=== PATIENT | female | born 2005 | race Hispanic/Latino ===

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

== ENCOUNTER 2025-02-28 20:05 | Emergency (ER) | payer MEDICAID, OTHER ==
[~2025-02-28] VITALS: Ht 165.1 cm; Wt 53.1 kg
[~2025-02-28 20:05] MED LIST changes: +CEFP200T14 PO; -CYCL5TAB PO; +CYCL5TAB3 PO
--- NOTE | 2025-02-28 20:07 | NUR ---
REPORT TO AILYN RAMÍREZ PT MOTHER NATALYA LOPEZ WILL BE BY FOR PT CHILD. DR[facility] FROM [facility]
[2025-02-28 20:26] LABS: IMMATURE GRANULOCYTE ABSOLUTE 0.04 K/uL (0-1); NUCLEATED RED BLOOD CELLS 0.0 % (0.0-0.19); PLATELET COUNT (AUTO) 204 K/uL (130-400); RED BLOOD CELL COUNT(AUTO) 5.14 MIL/uL (4.00-5.50); RED CELL DISTRIBUTION WIDTH 12.8 % (11.0-15.5); WHITE BLOOD COUNT (AUTO) 12.3 K/uL (4.8-10.8)
[2025-02-28 20:39] LABS: CREATININE 0.7 mg/dL (0.5-1.0); GLOMERULAR FILTR. RATE CALC 127.0 mL/min (>90); GLUCOSE,RANDOM 101.0 mg/dL (70-105); SODIUM SERUM 140.0 mmol/L (136-145); UREA NITROGEN, BLOOD 8.0 mg/dL (7-18)
--- NOTE | 2025-02-28 20:39 | ERN ---
ED Note History of Present Illness Stated Complaint: CHEST PAIN Chief Complaint: Chest Pain Time Seen by MD: 20:30 Dictation: This is a 19-year-old female who presented to the emergency room with complaints of midsternal chest pressure with radiation to the back. Apparently this sta rted around 2:00 p.m. today. She states that this pain increases with a inspiration. No fever chills or rigors no cough sputum or hemoptysis. She also reported nausea associated with it. No hematemesis or melena no vomitings or diarrhea. There is no relation of pain to leaning forwards Temperature 98.7 pulse 99 respirations 20 blood pressure 123/86 with a pulse oximetry of 98% on room air Allergies: Coded Allergies: No Known Allergies (Unverified Allergy, Unknown, 08/07/20) Home Meds Active Scripts Albuterol Sulfate (Ventolin Hfa/Proventil Hfa/Proair Hfa) 90 Mcg Puff, 1-2 PUFF IH Q4H PRN for SHORTNESS OF BREATH for 5 Days, #1 INH 0 Refills PHARMACY TO DISPENSE 1 INHALER FOR USE Prov:ROXIE TOVAR MD 02/28/25 Prednisone (Prednisone) 20 Mg Tablet, 1 TAB PO AD for 6 Days, #14 TAB 0 Refills TAKE 1 TAB BY MOUTH THREE TIMES PER DAY X3 DAYS, THEN TAKE 1 TAB BY MOUTH TWICE A DAY X2 DAYS, THEN TAKE 1 TAB BY MOUTH ONCE A DAY X1 DAY. Prov:ROXIE TOVAR MD 02/28/25 Cefpodoxime Proxetil (Cefpodoxime Proxetil) 200 Mg Tablet, 200 MG PO BID for 10 Days, #20 TAB Prov:JULIEN PHELAN DO 10/31/23 Cephalexin Monohydrate (Keflex) 500 Mg Cap, 500 MG PO TID for 7 Days, #21 CAP Prov:MALGORZATA TONG 04/23/22 Ibuprofen (Advil) 200 Mg Tablet, 400 MG PO Q6HPRN PRN for PAIN, #30 TAB Prov:SUELLEN CORNELIUS 03/27/22 Famotidine (Pepcid) 20 Mg Tablet, 20 MG PO DAILY for 14 Days, #14 TAB 0 Refills Prov:MICKI BARR MD 03/28/21 Lidocaine (Lidoderm Patch 5%) 1 Patch Patch, 1 PATCH TP DAILY PRN for PAIN LEVEL 1 TO 5, #30 ADH.PATCH 0 Refills Prov:NEELIMA BREWER MD 02/16/21 Cyclobenzaprine HCl (Cyclobenzaprine HCl) 5 Mg Tablet, 5 MG PO TID, #20 TAB 0 Refills Prov:NEELIMA BREWER MD 02/16/21 Past Medical History Past Medical History: No Pertinent History Surgical History: None Family History: Negative Social History: Lives with family LMP: Feb 10, 2025 : 2 Para: 1 Aborts: 1 RN Note Reviewed/Agreed w/PFSH: Yes Review of System Dictation Constitutional: Negative for fever,chills, and weight loss Eyes: Negative for injury, pain,redness, and discharge ENT: Negative for injury,pain or swelling Cardiovascular: Positive for mid central chest pain, denies palpitations, and edema Respiratory: Negative for shortness of breath, cough, and wheezing, Abdomen/GI: Negative for abdominal pain, nausea, vomiting, diarrhea, and const ipation Back: Negative for injury and pain : Negative for injury, bleeding and discharge MS/Extremity: Negative for injury and deformity Skin: Negative for rash, and discoloration Neuro: Negative for headache, weakness, numbness, tingling, and seizure Psych: Negative for suicide ideation, homicidal ideation, and hallucinations Initial Vital Sign VS Vital Signs Date Time Temp Pulse Resp B/P (MAP) Pulse Ox O2 Delivery O2 Flow Rate FiO2 02/28/25 20:07 98.8 99 20 123/86 98 Room Air 02/28/25 20:30 0 21 Physical Exam Dictation General: awake, alert, NAD Head/Face: Normocephalic, atraumatic Eyes: PERRL, EOMI, vision at baseline ENT: oral cavity clear, TMs clear, no signs of infection Neck: Trachea midline, supple, no nuchal rigidity Cardiovascular: RRR, normal S1/S2, No MRGs, no JVD Respiratory: CTAB, no respiratory distress, No rales or wheezes Abdomen: Soft, non-tender, non-distended, normal bowel sounds, no guarding or rebound. Skin: Warm, dry, normal turgor, no rash MS/Extremity: Pulses equal, no cyanosis, neurovascular intact, FROM Neuro: COAx4, GCS 15, strength 5/5, CN 2-12 intact, normal cerebellar exam, normal gait, Psych: Normal behavior, mood, and affect normal Extremities-trace edema without any palpable cords, Homans sign is negative Results (Laboratory/Radiology) Laboratory/Radiology Laboratory Tests Test 02/28/25 20:17 02/28/25 21:08 White Blood Count 12.3 K/uL (4.8-10.8) H Red Blood Count 5.14 MIL/uL (4.00-5.50) Hemoglobin 13.9 g/dL (12.0-16.0) Hematocrit 41.3 % (36-48) Mean Corpuscular Volume 80.4 fL (80-100) Mean Corpuscular Hemoglobin 27.0 pg (27.0-33.0) Mean Corpuscular Hemoglobin Concent 33.7 g/dL (32.0-36.0) Red Cell Distribution Width 12.8 % (11.0-15.5) Platelet Count 204 K/uL (130-400) Mean Platelet Volume 10.8 fL (7.5-10.5) H Immature Granulocyte % (Auto) 0.3 % (0-1) Neutrophils (%) (Auto) 69.5 % (40.0-77.0) Lymphocytes (%) (Auto) 21.9 % (21.0-51.0) Monocytes (%) (Auto) 4.7 % (3.0-13.0) Eosinophils (%) (Auto) 3.1 % (0.0-8.0) Basophils (%) (Auto) 0.5 % (0.0-5.0) Neutrophils # (Auto) 8.5 K/uL (1.8-7.7) H Lymphocytes # (Auto) 2.7 K/uL (1.0-4.8) Monocytes # (Auto) 0.6 K/uL (0.1-1.0) Eosinophils # (Auto) 0.38 K/uL (0.00-0.70) Basophils # (Auto) 0.06 K/uL (0.00-0.20) Absolute Immature Granulocyte (auto 0.04 K/uL (0-1) Nucleated Red Blood Cells 0.0 % (0.0-0.19) Sodium Level 140 mmol/L (136-145) Potassium Level 3.8 mmol/L (3.5-5.1) Chloride Level 103 mmol/L (101-111) Carbon Dioxide Level 29 mmol/L (21-32) Blood Urea Nitrogen 8 mg/dL (7-18) Creatinine 0.7 mg/dL (0.5-1.0) Glomerular Filtration Rate Calc 127 mL/min (>90) Random Glucose 101 mg/dL (70-105) Total Calcium 9.0 mg/dL (8.5-10.1) Total Creatine Kinase 89 U/L (21-232) Troponin I High Sensitivity < 4 ng/L (4-50) L Urine Color COLORLESS (YELLOW) Urine Appearance CLEAR (CLEAR) Urine pH 6.0 (5.0-8.0) Urine Specific [place] 1.004 (1.001-1.031) Urine Protein NEGATIVE mg/dL (NEGATIVE) Urine Glucose (UA) NEGATIVE mg/dL (NEGATIVE) Urine Ketones NEGATIVE mg/dL (NEGATIVE) Urine Occult Blood NEGATIVE (NEGATIVE) Urine Nitrate NEGATIVE (NEGATIVE) Urine Bilirubin NEGATIVE mg/dL (NEGATIVE) Urine Urobilinogen 0.2 mg/dL (0.2-1.0) Urine Leukocyte Esterase NEGATIVE [place]/uL Urine HCG, Qualitative NEGATIVE (NEGATIVE) Urine Opiates Screen NEGATIVE (NEGATIVE) Urine Barbiturates Screen NEGATIVE (NEGATIVE) Urine Phencyclidine Screen NEGATIVE (NEGATIVE) Urine Amphetamines Screen NEGATIVE (NEGATIVE) Urine Benzodiazepines Screen NEGATIVE (NEGATIVE) Urine Cocaine Screen NEGATIVE (NEGATIVE) Urine Marijuana (THC) Screen NEGATIVE (NEGATIVE) Labs Reviewed?: Yes EKG Comment: Twelve lead EKG done on 02/28/2025 at 8:20 p.m. showed a heart rate of 95 AR interval 158 QRS duration 81, QT/QTC 328/413 Impression normal sinus rhythm with nonspecific ST-T changes no acute ST-T elevations. EKG rhythm strip shows a normal sinus rhythm with no acute STT wave changes noted. Interpreted by ER MD Dr. Tovar X-RAY Comment: REASON: CHEST PAIN ORDERING PHYSICIAN: ROXIE TOVAR MD PROCEDURE: CXR1VW - CHEST 1VW EXAM: CR Chest, 1 View. CLINICAL HISTORY: CHEST PAIN COMPARISON: None provided. FINDINGS: LUNGS: There is no mass, infiltrate, or acute pulmonary abnormality. PLEURAL SPACES: No evidence of pleural effusion or pneumothorax. MEDIASTINUM: The cardiomediastinal silhouette is within normal limits. BONES: No acute osseous abnormality. IMPRESSION: No acute cardiopulmonary pathology is evident. /[place] DICTATED BY: DELVIN CHADWICK Jr., MD DATE: 02/28/252150 ELECTRONICALLY SIGNED BY: DELVIN CHADWICK Jr., MD DATE: 02/28/252150 ED Course ED Course Orders Procedure Category Date Status Time Vital Signs Per CPOE 02/28/25 Transmitted Routine 20:10 Chest 1vw RAD 02/28/25 Resulted 20:10 12 Lead Ekg Tracing- EKG 02/28/25 Complete Technical 20:10 Oxygen By Nc/Pulse Ox CPOE 02/28/25 Transmitted 20:10 Maintain Iv CPOE 02/28/25 Transmitted 20:10 Iv Insertion CPOE 02/28/25 Transmitted 20:10 Cardiac Monitoring CPOE 02/28/25 Transmitted 20:10 Pulse Oximetry With CPOE 02/28/25 Transmitted Vs And Prn 20:10 Cbc With Differential LAB 02/28/25 Complete 20:10 Activity: Br W/Brp CPOE 02/28/25 Transmitted With Assist 20:10 Creatine Kinase, Total LAB 02/28/25 Complete 20:10 Troponin I High LAB 02/28/25 Complete Sensitivity 20:10 Urinalysis Profile LAB 02/28/25 Complete 20:10 Basic Metabolic Panel LAB 02/28/25 Complete 20:10 ,Urine Test LAB 02/28/25 Complete 20:33 Drug Screen Urine LAB 02/28/25 Complete 20:36 Albuterol 0.042% PHA 02/28/25 Complete 1.25mg/3ml (Proventil 21:30 Methylprednisolone PHA 02/28/25 Complete Succ 40mg (Solu-Medro 21:30 Ketorolac PHA 02/28/25 Complete Tromethamine 15mg/Ml 22:30 Morphine 2mg Syg PHA 02/28/25 Complete (Morphine 2mg Syg) 23:00 Ondansetron 4mg Inj PHA 02/28/25 Complete (Zofran 4mg Inj) 23:00 Acetaminophen With PHA 02/28/25 Complete Codeine (Tylenol-Code 23:30 Lidocaine Hcl 2% PHA 03/01/25 Complete Viscous (Lidocaine Hcl 00:00 Mag/Alum/Simeth 30ml PHA 03/01/25 Complete (Maalox Plus 30ml) 00:00 Dicyclomine Hcl PHA 03/01/25 Complete (Bentyl 10mg/5ml 00:00 Current Medications Medications (Trade) Dose Ordered Sig/Americo Route PRN Reason Start Time Stop Time Status Last Admin Dose Admin Acetaminophen/ Codeine Phosphate (TYLenol-coDEINE TAB) 1 tab ONCE ONCE PO 02/28/25 23:30 02/28/25 23:31 DC 02/28/25 23:13 Al Hydroxide/Mg Hydroxide (MAALox PLUS 30ML) 30 ml ONCE ONCE PO 03/01/25 00:00 03/01/25 00:01 DC 02/28/25 23:44 Albuterol Sulfate (Proventil 0.042% 1.25mg/ 3ml) 1.25 ONCE ONCE IH 02/28/25 21:30 02/28/25 21:31 DC 02/28/25 22:07 Dicyclomine HCl (Bentyl 10mg/5ml Syrup) 10 mg ONCE ONCE PO 03/01/25 00:00 03/01/25 00:01 DC 02/28/25 23:44 Ketorolac Tromethamine (toRADol) 15 mg ONCE ONCE IM 02/28/25 22:30 02/28/25 22:31 DC 02/28/25 22:31 Lidocaine HCl (Lidocaine HCl 2% Viscous) 10 ml ONCE ONCE PO 03/01/25 00:00 03/01/25 00:01 DC 02/28/25 23:44 Methylprednisolone Sodium Succinate (Solu-medROL 40MG) 40 mg ONCE ONCE IM 02/28/25 21:30 02/28/25 21:31 DC 02/28/25 21:53 Morphine Sulfate (morPHINE 2MG SYG) 2 mg ONCE ONCE IVP 02/28/25 23:00 02/28/25 23:04 DC Ondansetron HCl (zoFRAN 4MG INJ) 4 mg ONCE ONCE IVP 02/28/25 23:00 02/28/25 23:04 DC Vital Signs Date Time Temp Pulse Resp B/P (MAP) Pulse Ox O2 Delivery O2 Flow Rate FiO2 02/28/25 22:24 99.3 85 18 131/78 98 Room Air* 0 21 02/28/25 22:06 77 17 02/28/25 20:30 98.8 99 18 125/81 98 Room Air* 0 21 02/28/25 20:07 98.8 99 20 123/86 98 Room Air We will perform diagnostic labs, imaging and administer medications according to the patient's complaint. Once the results are available, will review and personally interpreted the labs to rule out any acute life-threatening emergency the trach require immediate intervention and treatment. I will then re-evaluate the patient after treatment and diagnostic exams have return to determine whether the patient requires any further testing, can safely be discharged home or need further admission to hospital for additional treatment and evaluation. Patient finally responded to GI cocktail. I recommended that she to use [id number] Maalox or omeprazole and follow up with her primary care physician HEART Score Response (Comments) Value History: Low suspicion (0) 0 EKG: Normal 0 Age: < 45yrs (0) 0 Risk Factors: No known risk factors (0) 0 Initial Troponin: Normal limit (0) 0 HEART Score Risk: Low Risk for MACE (1-3) Total 0 Medical Decision Making MDM Differential diagnosis: Esophagitis, gastroesophageal reflux disease, hiatal hernia, gastritis, pericarditis, costochondritis, pleurisy This is a 19-year-old female who presented to the emergency room with complaints of midsternal chest pressure with radiation to the back. Apparently this started around 2:00 p.m. today. She states that this pain increases with a inspiration. No fever chills or rigors no cough sputum or hemoptysis. She also reported nausea associated with it. No hematemesis or melena no vomitings or diarrhea. Temperature 98.7 pulse 99 respirations 20 blood pressure 123/86 with a pulse oximetry of 98% on room air 8:40 p.m. labs reviewed CBC showed a white count of 12.3 BNP 7 is with a normal limits. Chest x-ray is unremarkable. Urinalysis and urine test are all pending at this time 11:00 p.m. urinalysis is unremarkable. Urine test is negative. UDS is negative. Patient received a dose of steroid and bronchodilator as she complained of also cough and pleuritic symptoms. A trial of pain medicine given. 11:30 p.m. patient continued to have pain radiating to the back with some improvement with the above medications. As a last resort I gave her the GI cocktail which really helped her. This makes me wonder an esophageal etiology as a cause of her pain. Rationale: Tests considered and ordered secondary to shared decision making include: Previous outside records reviewed: Old ER visits. Risk of complication and/or morbidity or mortality of patient management: None Medications-Per medication reconciliation Need for hospitalization: Patient does not meet criteria for hospitalization. Need for emergency major/minor surgery: No There are no social concerns with this patient. Prescription drug management Prescriptions will include symptomatic care Patient's prior external medical records from other ER visits were reviewed by me as indicated. Prior testing and results from previous visits were reviewed. Prior tests were taken into account with medical decision making and resource utilization, independent historian/historians were used to obtain complete medical history. I independently interpreted the test that were performed, results were reviewed by me and considered findings on radiology if ordered. Medical management and examination interpretation discussions were had by me with other qualified healthcare professionals as indicated for the patient's care. Problem List Problem List: (1) GERD (gastroesophageal reflux disease) (2) Pleurisy (3) Chest wall pain DX & DISP Disposition: Discharge Departure Impression: Primary Impression: GERD (gastroesophageal reflux disease) Additional Impressions: Chest wall pain, Pleurisy Condition: Stable Scripts Albuterol Sulfate (Ventolin Hfa/Proventil Hfa/Proair Hfa) 90 Mcg Puff 1-2 PUFF IH Q4H PRN for SHORTNESS OF BREATH for 5 Days, #1 INH 0 Refills PHARMACY TO DISPENSE 1 INHALER FOR USE Prov: ROXIE TOVAR MD 02/28/25 Prednisone (Prednisone) 20 Mg Tablet 1 TAB PO AD for 6 Days, #14 TAB 0 Refills TAKE 1 TAB BY MOUTH THREE TIMES PER DAY X3 DAYS, THEN TAKE 1 TAB BY MOUTH TWICE A DAY X2 DAYS, THEN TAKE 1 TAB BY MOUTH ONCE A DAY X1 DAY. Prov: ROXIE TOVAR MD 02/28/25 Additional Instructions: Patient and the caregiver have been informed of all the diagnostic tests and the imaging conducted during the today's visit to the emergency room and has verbalized understanding of the results I have personally reviewed and interpreted all diagnostic exams performed here in the ER today as well as the vital signs documented by the nursing staff. The patient is now being discharged to home and should follow up with the primary care physician or the specialist as directed by the ER staff. Follow-up with primary care provider in 1 to 2 days. Take medications as directed here in the emergency room. Okay to continue home medications unless otherwise discussed during your visit in the emergency room today. Return to your nearest emergency room if symptoms worsen or if there is no improvement. Call 911 if you need immediate assistance. Take Tylenol or Motrin [id number] as needed and if no contraindications are present. Increase oral hydration. A wound culture or urine culture was ordered here in the emergency room department please follow-up with primary care provider and advise them to get repeat ports from our facility. If you had any Samy wrap/splints that were applied here, please do not remove them until you see your primary care or specialty. I also recommended patient be evaluated for reactive airway disease with a PFT by her primary care physician. She was instructed take [id number] omeprazole and Maalox PRN ROXIE TOVAR MD Feb 28, 2025 20:39
[2025-02-28 20:44] LABS: CREATINE KINASE, TOTAL 89.0 U/L (21-232)
--- NOTE | 2025-02-28 20:52 | HMCIMG ---
EXAM: CR Chest, 1 View. CLINICAL HISTORY: CHEST PAIN COMPARISON: None provided. FINDINGS: LUNGS: There is no mass, infiltrate, or acute pulmonary abnormality. PLEURAL SPACES: No evidence of pleural effusion or pneumothorax. MEDIASTINUM: The cardiomediastinal silhouette is within normal limits. BONES: No acute osseous abnormality. IMPRESSION: No acute cardiopulmonary pathology is evident. /[place]
--- NOTE | 2025-02-28 20:53 | EKG ---
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
[2025-02-28 21:17] LABS: ADD UA MICROSCOPIC NO; APPEARANCE,URINE CLEAR (CLEAR); GLUCOSE, URINE (UA) NEGATIVE (NEGATIVE); LEUKOCYTE ESTERASE ,URINE NEGATIVE Leu/uL (NEGATIVE); NITRATE,URINE NEGATIVE (NEGATIVE); OCCULT BLOOD,URINE NEGATIVE (NEGATIVE)
[2025-02-28] MEDS ORDERED: ALBUHFA IH (21:22)
[2025-02-28] MEDS ORDERED: PRED20TA3 PO (21:22)
[2025-02-28] MEDS: Solu-medROL 40MG VIAL IM ONE (21:53)
[2025-02-28 22:06] VITALS: PULSE 77; RESP 17
[2025-02-28] MEDS: ALBUTEROL 0.042% 1.25MG/3ML IH ONE (22:07)
[2025-02-28 22:55] LABS: AMPHET/METH SCREEN,URINE NEGATIVE (NEGATIVE); BARBITURATE SCREEN, URINE NEGATIVE (NEGATIVE); CANNABINOID SCREEN,URINE NEGATIVE (NEGATIVE); COCAINE SCREEN,URINE NEGATIVE (NEGATIVE)
[2025-02-28] MEDS: LIDOCAINE HCL 2% VISCOUS 15 ML UDCUP PO ONE (23:44)
[2025-02-28] MEDS: DICYCLOMINE HCL 10 MG/5 ML ML PO ONE (23:44)
[2025-02-28] MEDS: MAG/ALUM/SIMETH 30 ML UDCUP PO ONE (23:44)
[2025-03-01 00:28] VITALS: BP 121/69; PULSE 79; RESP 18; TEMP 99; O2SAT 99
== END 2025-03-01 00:30 | disposition home or self-care (01) ==
LOC: EDH 20:05
DX: K21.9 Gastro-esophageal reflux disease without esophagitis (principal); R07.89 Other chest pain; R09.1 Pleurisy
CPT/HCPCS: 99285; 71045; 82550; 84484; 80048; 80305; 85025; 81025; 36415; 96372 ×2; 93005; 94640; 81003; J1885; J2919